=== PATIENT | male | born 1990 | race Caucasian/White ===

== ENCOUNTER 2016-07-21 06:56 | Emergency (ER) | payer OTHER | END 2016-07-21 08:14 | disposition home or self-care (01) | LOC: FER 06:56 | DX: S61.412A Laceration without foreign body of left hand, initial encounter (principal); Z23 Encounter for immunization; W45.8XXA Other foreign body or object entering through skin, initial encounter; Y92.69 Other specified industrial and construction area as the place of occurrence of the external cause; Y99.0 Civilian activity done for income or pay | CPT/HCPCS: 90471; 90715 ==

== ENCOUNTER 2021-07-06 16:11 | Emergency (ER) | payer OTHER ==
[~2021-07-06 16:11] MED LIST: CERTAGEN1 EACH PO; CIPRO500 MG PO; METRONIDAZOLE500 MG PO
[2021-07-06 18:22] LABS: BASOPHIL 0.3 % (0-2); EOSINOPHIL 0.6 % (0-5); HCT 46.4 % (42.0-52.0); HGB 16.2 g/dl (13.2-18.0); LYMPHOCYTE 7.3 % (15-48); MCH 30.7 pg (25.0-31.0); MCHC 34.9 g/dL (32.0-36.0); MONOCYTE 7.6 % (0-12); MPV 9.9 fL (6.0-9.5); NEUTROPHIL 83.9 % (41-80); NRBC 0; PLT 301 K/uL (150-400); RBC 5.27 M/uL (4.70-6.00); RDW 11.8 % (11.5-14.0); WBC 15.6 K/uL (4.0-10.5)
[2021-07-06 18:40] LABS: ALBUMIN 4.2 g/dL (3.4-5.0); BILIRUBIN - TOTAL 0.7 mg/dL (0.2-1.0); BUN/CREAT RATIO (CALC) 17.9 RATIO; CREATININE 0.84 mg/dL (0.67-1.17); GLOBULIN (CALCULATION) 3.2 g/dL; POTASSIUM 3.7 mmol/L (3.5-5.1); TOTAL PROTEIN 7.4 g/dL (6.4-8.2)
[2021-07-06 18:55] LABS: LACTIC ACID 0.8 mmol/L (0.4-1.9)
[2021-07-06 20:50] LABS: BILIRUBIN NEGATIVE (NEGATIVE); BLOOD NEGATIVE Ery/uL (NEGATIVE); CLARITY CLEAR (CLEAR); COLOR YELLOW (YELLOW); GLUCOSE (U) NORMAL (NORMAL); LEUKOCYTES NEGATIVE Leu/uL (NEGATIVE); NITRITE NEGATIVE (NEGATIVE); PROTEIN NEGATIVE (NEGATIVE); SPECIFIC GRAVITY <=1.005 (1.001-1.030); UROBILINOGEN 0.2 mg/dL (0.2-1.0)
[2021-07-06] MEDS ORDERED: METRONIDAZOLE500 MG PO (20:59)
[2021-07-06] MEDS ORDERED: NORCO 5-325 TA1 EACH PO (20:59)
[2021-07-06] MEDS ORDERED: CIPRO500 MG PO (20:59)
== END 2021-07-06 21:21 | disposition home or self-care (01) ==
LOC: FER 16:11
PROVIDERS: Emergency Medicine
DX: K57.32 Diverticulitis of large intestine without perforation or abscess without bleeding (principal); Z88.0 Allergy status to penicillin
CPT/HCPCS: 36415; 80053; 81003; 83605; 83690; 85025; J7030; Q9967